=== PATIENT | female | born 1975 | race Two or more races ===

== ENCOUNTER 2017-07-19 07:56 | Emergency (ER) | payer MEDICAID ==
[~2017-07-19] VITALS: Ht 152.4 cm; Wt 67.6 kg
[2017-07-19 08:11] VITALS: BP 138/76
--- NOTE | 2017-07-19 08:20 | Emergency Room Report ---
History of Present Illness General Chief Complaint: Lower Back Pain or Injury Source: Patient Present Illness HPI Patient presents to the emergency department today complaining of severe lower back pain. 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 She complains of pain in her lower back paraspinal region. She denies any dysuria or urinary difficulty or urinary retention. She denies any perineal anesthesia. However the pain is so severe that her primary care physician sent her to the emergency department for MRI of the lower back. She denies any trauma. No other complaints are noted. Symptoms noted to be severe.No other modifying factors. No other associated signs and symptoms. No other complaints were noted. Allergies: Coded Allergies: No Known Allergies (Unverified , 07/19/17) Patient History Past Medical History: none Past Surgical History: none Pertinent Family History: none Social History: Denies: smoking, alcohol use, drug use Last Menstrual Period: 07/06/17 Now: No : 0 Reviewed Nursing Documentation: PMH: Agreed; PSxH: Agreed Nursing Documentation-PMH Past Medical History: No Stated History Review of Systems All Other Systems: negative except mentioned in HPI Physical Exam Vital Signs Date Time Temp Pulse Resp B/P (MAP) Pulse Ox O2 Delivery O2 Flow Rate FiO2 07/19/17 08:04 98.1 65 18 141/76 96 Room Air 98.1 Sp02 EP Interpretation: reviewed, normal General Appearance: normal inspection, well appearing, no apparent distress, alert Head: atraumatic Eyes: bilateral eye normal inspection ENT: normal ENT inspection, hearing grossly normal, normal voice Neck: normal inspection, full range of motion, supple, no bony tend Respiratory: normal inspection, lungs clear, normal breath sounds, no respiratory distress, no retraction, no wheezing Cardiovascular #1: regular rate, rhythm, no edema Gastrointestinal: normal inspection, normal bowel sounds, non tender, soft, no guarding, no hernia Genitourinary: no CVA tenderness Musculoskeletal: normal inspection, back normal, tender - paraspinal region Neurologic: normal inspection, alert, responsive, speech normal Psychiatric: normal inspection, judgement/insight normal, depressed affect, anxious Skin: normal inspection, normal color, no rash Medical Decision Making Diagnostic Impression: Primary Impression: Herniated lumbar disc without myelopathy Additional Impression: Low back pain ER Course Patient presents to the emergency department today complaining of lower back pain. Difficult considerations include radiculopathy, herniated disc, epidural hematoma or abscess just to name a few. Given severity of patient's pain of having MRI was indicated. Case was discussed with patient's primary care physician Dr. Herrera will recommend an MRI. MRI was performed which shows evidence of herniated disc but no evidence of cauda equina. Therefore if was felt the patient could be discharged home.Patient is advised to follow up with primary doctor in 2-3 days and return the emergency room for any worsening symptoms and as needed. Labs Test 07/19/17 08:30 Urine Color Pale yellow Urine Appearance Clear Urine pH 6 (4.5-8.0) Urine Specific [place] 1.020 (1.005-1.035) Urine Protein Negative (NEGATIVE) Urine Glucose (UA) Negative (NEGATIVE) Urine Ketones Negative (NEGATIVE) Urine Occult Blood 3+ (NEGATIVE) Urine Nitrite Negative (NEGATIVE) Urine Bilirubin Negative (NEGATIVE) Urine Urobilinogen Normal MG/DL (0.0-1.0) Urine Leukocyte Esterase Negative (NEGATIVE) Urine RBC 2-4 /HPF (0 - 2) Urine WBC 0-2 /HPF (0 - 2) Urine Squamous Epithelial Cells Few /LPF (NONE/OCC) Urine Bacteria Occasional /HPF (NONE) Urine HCG, Qualitative Negative (NEGATIVE) CT/MRI/US Diagnostic Results CT/MRI/US Diagnostic Results : Imaging Test Ordered: mRI lumbar spine: Positive herniated disc. Last Vital Signs Date Time Temp Pulse Resp B/P (MAP) Pulse Ox O2 Delivery O2 Flow Rate FiO2 07/19/17 08:04 98.1 65 18 141/76 96 Room Air 98.1 Status: improved Disposition: HOME, SELF-CARE Condition: Stable Scripts Hydrocodone Bit/Acetaminophen 5-325* (NORCO 5-325*) 1 Each Tablet 1 TAB ORAL Q6H PRN for For Pain, #10 TAB 0 Refills Prov: GIO DUMONT M.D. 07/19/17 Ibuprofen* (MOTRIN*) 600 Mg Tablet 600 MG ORAL Q8H PRN for For Pain, #30 TAB 0 Refills Prov: GIO DUMONT M.D. 07/19/17 GIO DUMONT M.D. Jul 19, 2017 08:20
[2017-07-19] MEDS ORDERED: Ketorolac 30mg Inj IM ONE (08:30)
[2017-07-19 08:44] LABS: APPEARANCE,URINE CLEAR; BILIRUBIN, URINE NEGATIVE (NEGATIVE); COLOR,URINE PALE YELLOW; GLUCOSE, URINE (UA) NEGATIVE (NEGATIVE); KETONES,URINE NEGATIVE (NEGATIVE); LEUKOCYTE ESTERASE ,URINE NEGATIVE (NEGATIVE); NITRITE,URINE NEGATIVE (NEGATIVE); PH,URINE 6 (4.5-8.0); PROTEIN,URINE NEGATIVE (NEGATIVE); UROBILINOGEN,URINE NORMAL MG/DL (0.0-1.0)
--- NOTE | 2017-07-19 10:01 | Diagnostic Imaging Report ---
Indication: Severe low back pain x2 months, worsening in the past week Technique: Sagittal T1 and T2 fast spin echo, sagittal STIR, axial T1 and T2 fast spin-echo images of the lumbar spine Comparison: none Findings: The vertebral body heights are preserved. The vertebral body marrow signal is normal. The bony alignment is normal. Conus medullaris terminates at the L1-2 level. The disc spaces are preserved. There is mild lower lumbar disc desiccation. At L5-S1, there is a mild right subarticular and intraforaminal disc protrusion with a small high intensity zone. This results in mild to moderate compromise of the right neural foramen. Left neural foramen is preserved. At the remaining disc levels, no significant disc bulge or protrusion, spinal stenosis, or neural foraminal stenosis. The included extraspinal soft tissues are unremarkable. Impression: Positive for right subarticular and intraforaminal disc protrusion at L5-S1, with small high intensity zone. This results in mild to moderate compromise of the right neural foramen No other evidence of significant neural impingement. No acute osseous abnormality
[2017-07-19 10:13] VITALS: BP 124/74
[2017-07-19] MEDS ORDERED: NORCO 5-325 TA1 EACH ORAL (10:33)
[2017-07-19] MEDS ORDERED: IBUPROFEN600 MG ORAL (10:33)
[2017-07-19 10:41] VITALS: BP 124/70
== END 2017-07-19 10:44 | disposition home or self-care (01) ==
LOC: EMR 08:35
DX: M51.26 Other intervertebral disc displacement, lumbar region (principal)
CPT/HCPCS: 72148; 81003; 81025; 96372; 99284; J1885